=== PATIENT | female | born 1960 | race African-American/Black ===

== ENCOUNTER 2017-11-16 20:46 | Emergency (ER) | payer OTHER ==
[2017-11-16 20:59] VITALS: BP 179/98; TEMP 97.5; BMI 32.5
--- NOTE | 2017-11-16 21:15 | PDOC ---
History of Present Illness - General Chief Complaint: Weakness Stated Complaint: FATIGUE Time Seen by Provider: 11/16/17 21:02 - History of Present Illness Initial Comments: 11/16/17 21:45 The patient is a 57 year old female with a history of HTN who presents for evaluation of increased urinary frequency and increased thirst. The patient reports a 1 week history of increased urinary frequency and increased thirst. She noted some blurry vision today which prompted her to present to the ED for evaluation. She denies having symptoms similar to this in the past. She denies fevers, chills, headache, SOB, chest pain, abdominal pain, or changes with her bowel movements. Fingerstick BG in triage was above the detectable range. Past History - Past Medical History Allergies/Adverse Reactions: Allergies Allergy/AdvReac Type Severity Reaction Status Date / Time No Known Allergies Allergy Verified 11/16/17 20:52 Home Medications: Ambulatory Orders Olmesartan Medoxomil [Benicar (Nf)] 20 mg PO DAILY 09/29/16 Amlodipine Besylate [Norvasc -] 5 mg PO DAILY 11/16/17 Nebivolol [Bystolic -] 5 mg PO DAILY 11/16/17 COPD: No HTN: Yes - Suicide/Smoking/Psychosocial Hx Smoking History: Never smoked Number of Cigarettes Smoked Daily: 0 Hx Alcohol Use: No Drug/Substance Use Hx: No Review of Systems - Review of Systems Comments:: 11/16/17 21:49 Constitutional: Increased Thirst. No fevers, chills, fatigue, malaise HEENT: No Rhinorrhea, nasal congestion, visual changes Cardiovascular: No chest pain, syncope, palpitations, lightheadedness Respiratory: No Cough, SOB, Hemoptysis, Gastrointestinal: No Abdominal pain, Nausea, Vomiting, Constipation, Diarrhea, Melena Genitourinary: Increased Urinary Frequency. No Dysuria, Urgency, Hesitancy, Hematuria, Flank pain Musculoskeletal: No Myalgia, arthralgia Skin: No rashes, bruising, pallor Neurologic: No Headache, Dizziness, Numbness, Weakness, or Tingling Psychiatric: No Hallucinations. No SI or HI *Physical Exam - Vital Signs Last Vital Signs Temp Pulse Resp BP Pulse Ox 97.5 F L 79 18 179/98 99 11/16/17 20:57 11/16/17 20:57 11/16/17 20:57 11/16/17 20:57 11/16/17 20:57 - Physical Exam Comments: 11/16/17 21:50 General Appearance: Nourished. No Apparent Distress HEENT: EOMI, JACOB. No Pharyngeal Erythema, Tonsillar Exudate, Tonsillar Erythema Neck: No Cervical Lymphadenopathy Respiratory/Chest: Lungs Clear, Normal Breath Sounds. No Crackles, Rales, Rhonchi, Wheezing Cardiovascular: Regular Rhythm, Regular Rate. No Murmur, Gallops, Rubs Gastrointestinal/Abdominal: Normal Bowel Sounds, Soft. No Guarding, Rebound, Tenderness Musculoskeletal: No CVA Tenderness Extremity: Normal Capillary Refill Integumentary: Normal Color, Dry, Warm Neurologic: Fully Oriented, Alert, Normal Mood/Affect, Normal Response, Heart Score/ECG Review #1 ECG reviewed & interpreted by me at: 03:29 General ECG Interpretation: Sinus Rhythm, Normal Rate, Normal Intervals, No acute ischemic changes Compared to previous ECG there are: No significant change ED Treatment Course - LABORATORY CBC & Chemistry Diagram: 11/16/17 22:58 11/16/17 22:58 Medical Decision Making - Medical Decision Making 11/16/17 21:50 The patient is a 57 year old female with a history of HTN who presents for evaluation of increased urinary frequency and increased thirst. Differential includes but is not limited to: Hyperglycemia, HHS, DKA, infectious, metabolic derangement. Given the patient's extremely high BG, it is likely her symptoms are due to hyperglycemia. Given her physical exam, she does not appear to be in DKA. We will obtain a cbc, cmp, acetone, ua and treat the patient with iv fluids. We will continue to monitor and reassess. 11/17/17 00:02 cbc is unremarkable. cmp demonstrates a glucose of 538 consistent with hyperglycemia and new onset diabetes. UA demonstrates glucose in the urine. serume acetone is positive. We will treat the patient with iv fluids and 4 units of insulin and repeat a fingerstick glucose. 11/17/17 03:04 Repeat fingerstick glucose was 385 despite treatment. We will continue to treat with another iv fluid bolus and another 4 units of insulin. The patient continues to appear clinically well on exam. 11/17/17 03:55 Repeat fingerstick glucose was 148. The patient continues to appear clinically well on exam. We are comfortable discharging the patient home at this time with primary care provider follow up. We discussed the plan with the patient who voiced understanding and is agreeable with the plan. *DC/Admit/Observation/Transfer Diagnosis at time of Disposition: Hyperglycemia Diabetes Qualifiers: Diabetes mellitus type: other specified (including ARELI) Diabetes mellitus complication status: with unspecified complications Diabetes mellitus exterminator insulin use: unspecified exterminator insulin use status Qualified Code(s): E13.8 - Other specified diabetes mellitus with unspecified complications - Discharge Dispostion Disposition: HOME Condition at time of disposition: Improved Admit: No - Referrals - Patient Instructions Printed Discharge Instructions: DI for Diabetes Type 2, DI for Hyperglycemia - - Adult Additional Instructions: Please return to the ER if you experience concerning or worsening symptoms including chest pain, difficulty breathing, or fevers. You were seen in the ER for increased urination and thirst. Your lab results demonstrated that your symptoms are likely due to new onset diabetes and your blood sugar was extremely high. It is extremely important that you call to schedule a follow up appointment with your primary care provider today or early next week to discuss further management of your symptoms. - Post Discharge Activity
--- NOTE | 2017-11-16 21:31 | PDOC ---
Attending Attestation - HPI HPI: 11/16/17 21:37 57 F with a PMHx of HTN, c/o increased thirst and urinary frequency for 1 week, along with associated blurry vision this morning. She denies any previous history of these symptoms. Pt denies CP, SOB, POOLE and dizziness. Pt denies F/C, abdominal pain, n/v/d. Pt denies dysuria, urgency and hematuria. <Arlen Vidales - Last Filed: 11/16/17 21:37> - Resident Resident Name: Thaddeus Menendez - ED Attending Attestation I have performed the following: I have examined & evaluated the patient, The case was reviewed & discussed with the resident, I agree w/resident's findings & plan, Exceptions are as noted - Physicial Exam PE: 11/16/17 21:39 *Physical Exam General Appearance: Yes: Appropriately Dressed. No: Apparent Distress, Intoxicated HEENT: positive: EOMI, JACOB, Normal ENT Inspection, Normal Voice, TMs Normal, Pharynx Normal. negative: Pale Conjunctivae, Photophobia, Scleral Icterus (R), Scleral Icterus (L) Neck: positive: Trachea midline, Normal Thyroid, Supple. negative: Tender, Rigid, Carotid bruit, Stridor, Lymphadenopathy (R), Lymphadenopathy (L), Thyromegaly Respiratory/Chest: positive: Lungs Clear, Normal Breath Sounds. negative: Chest Tender, Respiratory Distress, Accessory Muscle Use, Labored Respiration, RES, Crackles, Rales, Rhonchi, Stridor, Wheezing, Dullness Cardiovascular: positive: Regular Rhythm, Regular Rate, S1, S2. negative: Edema , JVD, Murmur, Bradycardia, Tachycardia Vascular Pulses: Dorsalis-Pedis (R): 2+, Doralis-Pedis (L): 2+ Gastrointestinal/Abdominal: positive: Normal Bowel Sounds, Flat, Soft. negative : Tender, Organomegaly, Pulsatile Mass, Increased Bowel Sounds, Decreased BS, Distended, Guarding, Rebound, Hernia, Hepatomegaly, Spleenomegaly Lymphatic: negative: Adenopathy, Tenderness Musculoskeletal: positive: Normal Inspection. negative: CVA Tenderness, Decreased Range of Motion Extremity: positive: Normal Capillary Refill, Normal Inspection, Normal Range of Motion, Pelvis Stable. negative: Tender, Pedal Edema, Swelling, Erythema Integumentary: positive: Normal Color, Dry, Warm. negative: Cyanotic, Erythema , Jaundice, Rash Neurologic: positive: composition weatherboard installer II-XII NML intact, Fully Oriented, Alert, Normal Mood/ Affect, Motor Strength 5/5. negative: EOM Palsy, Facial Droop, Sensory Deficit <Dae Gr - Last Filed: 11/16/17 21:40>
[2017-11-16] MEDS ORDERED: SODIUM CHLORIDE 1,000 ML IV STA (21:32)
[2017-11-16 23:14] LABS: URINE APPEARANCE CLEAR; URINE BILIRUBIN NEGATIVE (NEGATIVE); URINE BLOOD NEGATIVE (NEGATIVE); URINE COLOR STRAW; URINE GLUCOSE (UA) 3+ (NEGATIVE); URINE KETONE NEGATIVE (NEGATIVE); URINE NITRITE NEGATIVE (NEGATIVE); URINE PROTEIN NEGATIVE (NEGATIVE); URINE UROBILINOGEN NEGATIVE mg/dL (0.2-1.0)
[2017-11-16 23:16] LABS: URINE LEUK ESTERASE 2+ (NEGATIVE)
[2017-11-16 23:19] LABS: BASO # 0.2 #; BASO % 1.7 % (0-2.0); EOS # 0.1 #; EOS % 1.1 % (0-4.5); LYMPH # 2.8; MCH 31.2 pg (25.7-33.7); MCHC 33.7 g/dl (32.0-36.0); MEAN CELL VOLUME 92.8 fl (80-96); MEAN PLT VOLUME 10.7 fl (7.5-11.1); MONO # 0.6 #; NEUT # 5.2 #; PLATELET COUNT 248 K/MM3 (134-434); RDW 12.6 % (11.6-15.6); WHITE BLOOD COUNT 8.9 K/mm3 (4.0-10.0)
[2017-11-16 23:47] LABS: URINE MUCUS RARE; URINE RBC 2 /hpf (0-3); URINE WBC 18 /hpf (3-5)
[2017-11-17 00:02] LABS: ALBUMIN 4.3 g/dl (3.4-5.0); ANION GAP 14 (8-16); BILIRUBIN,TOTAL 0.3 mg/dL (0.2-1.0); CALCIUM 10.6 mg/dL (8.5-10.1); CO2 26 mmol/L (21-32); CREATININE 1.7 mg/dL (0.55-1.02); SGOT/AST 11 U/L (15-37); SGPT/ALT 31 U/L (12-78); TOT PROT 8.9 g/dl (6.4-8.2)
[2017-11-17 00:03] LABS: ALK PHOS 105 U/L (45-117)
[2017-11-17 00:07] LABS: GLUCOSE,RANDOM 538 mg/dL (74-106)
[2017-11-17] MEDS ORDERED: SODIUM CHLORIDE 1,000 ML IV STA ×2 (00:22→02:47)
[2017-11-17] MEDS ORDERED: INSULIN REGULAR HUMAN 100 UNITS/ML *VIAL SQ ONE ×2 (00:30→02:47)
[2017-11-17 00:31] LABS: THYROID STIMULATING HORMONE 1.36 uIU/ml (0.358-3.74)
[2017-11-17] MEDS ORDERED: INSULIN REGULAR HUMAN 100 UNITS/ML *VIAL ONE (00:39)
[2017-11-17] MEDS ORDERED: HEMOQUE TEST 1 EACH EACH ONE (02:03)
[2017-11-17 04:21] VITALS: PULSE 88
--- NOTE | 2017-11-17 09:24 | EKG ---
Test Reason : Blood Pressure : / mmHG Vent. Rate : 053 BPM Atrial Rate : 053 BPM P-R Int : 164 ms QRS Dur : 094 ms QT Int : 428 ms P-R-T Axes : 053 011 017 degrees QTc Int : 401 ms SINUS BRADYCARDIA POSSIBLE LEFT ATRIAL ENLARGEMENT INCOMPLETE RIGHT BUNDLE BRANCH BLOCK SEPTAL INFARCT , AGE UNDETERMINED ABNORMAL ECG Confirmed by STEVE GALLARDO MD ([id number]) on 11/17/2017 9:23:56 AM Referred By: Confirmed By:STEVE GALLARDO MD
[2017-11-17 14:51] LABS: URINE LEUK ESTERASE TRACE (NEGATIVE)
== END 2017-11-17 04:22 | disposition home or self-care (01) ==
LOC: JER 20:46
PROC: 3E0337Z Introduction of Electrolytic and Water Balance Substance into Peripheral Vein, Percutaneous Approach (ICD-10-PCS; principal; 2017-11-16)
PROC: 3E013VG Introduction of Insulin into Subcutaneous Tissue, Percutaneous Approach (ICD-10-PCS; 2017-11-16)
PROC: 3E013VG Introduction of Insulin into Subcutaneous Tissue, Percutaneous Approach (ICD-10-PCS; 2017-11-16)
DX: E11.65 Type 2 diabetes mellitus with hyperglycemia (principal)
CPT/HCPCS: 36415; 80053; 81003; 81015; 82009; 84443; 85025; 93005; 93010; 99283-25